=== PATIENT | female | born 1940 | race Hispanic/Latino ===

== ENCOUNTER 2021-09-11 11:29 | Emergency (ER) | payer MEDICARE ==
[~2021-09-11] VITALS: Ht 139.7 cm; Wt 59.4 kg
[2021-09-11 12:39] LABS: BASOPHILS % 0.2 % (0.0-1.0); EOSINOPHILS # (AUTO) 0.1 (0.0-0.4); EOSINOPHILS % 1.1 % (0.0-6.0); HEMATOCRIT 38.5 % (34.2-44.1); HEMOGLOBIN 12.1 g/dL (12.0-16.0); LYMPHOCYTES # (AUTO) 0.8 (1.0-3.2); LYMPHOCYTES % 9.4 % (18.0-39.1); MEAN CORPUSCULAR HEMOGLOBIN 29.7 pg (28-32); MEAN CORPUSCULAR HGB CONC 31.4 g/dL (31-35); MEAN CORPUSCULAR VOLUME 94.4 fL (81-99); MONOCYTES # (AUTO) 0.5 (0.2-0.8); MONOCYTES % 5.3 % (4.4-11.3); NEUTROPHILS # (AUTO) 7.4 (2.1-6.9); NEUTROPHILS % 83.5 % (38.7-80.0); PLATELET COUNT 242 x10e3/uL (140-360); RED BLOOD COUNT 4.08 x10e6/uL (3.6-5.1); RED CELL DISTRIBUTION WIDTH 15.8 % (11.7-14.4)
[2021-09-11 12:42] LABS: CLARITY,URINE CLOUDY (CLEAR); COLOR,URINE YELLOW (YELLOW)
[2021-09-11 12:43] LABS: KETONES,URINE NEGATIVE (NEGATIVE); LEUKOCYTE ESTERASE ,URINE NEGATIVE (NEGATIVE); NITRITE,URINE NEGATIVE (NEGATIVE); PROTEIN,URINE DIPSTICK 1+ (NEGATIVE); URINE UROBILINOGEN 0.2 mg/dL (0.2 - 1)
[2021-09-11 12:59] LABS: ALBUMIN 3.7 g/dL (3.5-5.0); ANION GAP 12.7 mmol/L (8-16); CALCIUM 8.5 mg/dL (8.4-10.2); CREATININE, SERUM 0.84 mg/dL (0.57-1.11); POTASSIUM 3.7 mmol/L (3.5-5.1)
[2021-09-11 13:00] LABS: LIPASE 20 U/L (8-78)
[2021-09-11 13:06] LABS: BACTERIA,URINE FEW /HPF; EPITHELIAL CELLS,URINE FEW /LPF; RBC,URINE >50 /HPF (0-5); WBC,URINE (MAN) 0-5 /HPF (0-5)
[2021-09-11] MEDS ORDERED: KETOROLAC TROMETHAMINE 30 MG/ML VIAL IV STA (14:09)
[2021-09-11] MEDS ORDERED: CEFUROXIME250 MG PO (15:12)
[2021-09-11] MEDS ORDERED: ULTRAM 50MG50 MG PO ×3 (15:12→15:27)
[2021-09-11] MEDS ORDERED: FLOMAX0.4 MG PO (15:12)
[2021-09-11 15:41] VITALS: BP 132/70
== END 2021-09-11 15:45 | disposition home or self-care (01) ==
LOC: ER 11:35
DX: R10.12 Left upper quadrant pain (principal); R31.9 Hematuria, unspecified; N20.2 Calculus of kidney with calculus of ureter
CPT/HCPCS: 36415; 74176; 80053; 81001; 83690; 84484; 85025; 93005; 99284; J1885

== ENCOUNTER 2022-03-17 13:51 | Inpatient (IN) | payer MEDICARE, OTHER ==
[~2022-03-17] VITALS: Ht 139.7 cm; Wt 55.3 kg
[~2022-03-17 13:51] MED LIST: CEFUROXIME250 MG PO; FLOMAX0.4 MG PO; ULTRAM 50MG50 MG PO
[2022-03-17] MEDS ORDERED: KETOROLAC TROMETHAMINE 60 MG/2 ML VIAL IM ONE (15:30)
[2022-03-17] MEDS ORDERED: ONDANSETRON HCL 4 MG ORAL DISINTEGRATING TAB PO ONE (15:30)
[2022-03-17 15:37] LABS: CLARITY,URINE CLEAR (CLEAR); COLOR,URINE YELLOW (YELLOW); KETONES,URINE 2+ (NEGATIVE); LEUKOCYTE ESTERASE ,URINE NEGATIVE (NEGATIVE); NITRITE,URINE NEGATIVE (NEGATIVE); PROTEIN,URINE DIPSTICK TRACE (NEGATIVE); URINE UROBILINOGEN 0.2 mg/dL (0.2 - 1)
[2022-03-17 15:51] LABS: BACTERIA,URINE FEW /HPF; CALCIUM OXALATE CRYSTALS,UR FEW (FEW); RBC,URINE 21-50 /HPF (0-5)
[2022-03-17] MEDS ORDERED: KETOROLAC TROMETHAMINE 30 MG/ML VIAL IV STA (18:15)
[2022-03-17 18:35] LABS: BASOPHILS % 0.1 % (0.0-1.0); HEMATOCRIT 41.9 % (34.2-44.1); HEMOGLOBIN 12.9 g/dL (12.0-16.0); LYMPHOCYTES # (AUTO) 0.7 (1.0-3.2); LYMPHOCYTES % 7.1 % (18.0-39.1); MEAN CORPUSCULAR HEMOGLOBIN 28.6 pg (28-32); MEAN CORPUSCULAR HGB CONC 30.8 g/dL (31-35); MEAN CORPUSCULAR VOLUME 92.9 fL (81-99); MONOCYTES # (AUTO) 0.2 (0.2-0.8); MONOCYTES % 1.8 % (4.4-11.3); NEUTROPHILS # (AUTO) 9.2 (2.1-6.9); NEUTROPHILS % 90.8 % (38.7-80.0); PLATELET COUNT 325 x10e3/uL (140-360); RED BLOOD COUNT 4.51 x10e6/uL (3.6-5.1); RED CELL DISTRIBUTION WIDTH 14.7 % (11.7-14.4)
[2022-03-17 18:50] LABS: ALBUMIN 4.3 g/dL (3.5-5.0); ALBUMIN/GLOBULIN RATIO 1.3 (0.8-2.0); ANION GAP 14.1 mmol/L (8-16); CALCIUM 9.2 mg/dL (8.4-10.2); CREATININE, SERUM 0.78 mg/dL (0.57-1.11); POTASSIUM 4.1 mmol/L (3.5-5.1)
[2022-03-17] MEDS ORDERED: Morphine 4mg INJECTION 4 MG/ML INJ IV ONE (19:00)
[2022-03-17 20:25] VITALS: BP 127/64
[2022-03-17 20:30] VITALS: BP 127/64
[2022-03-17 21:10] VITALS: BP 127/64
[2022-03-17] MEDS ORDERED: KLONOPIN0.5 MG PO (21:10)
[2022-03-17] MEDS ORDERED: FLOMAX0.4 MG PO (21:10)
[2022-03-17] MEDS ORDERED: DIOVAN160 MG PO (21:10)
[2022-03-17] MEDS ORDERED: FEROSUL325 MG (21:10)
[2022-03-17] MEDS ORDERED: ZOLPIDEM TARTRAT5 MG PO (21:10)
[2022-03-17] MEDS ORDERED: TRAMADOL HCL 50 MG TAB PO PRN (23:00)
[2022-03-17] MEDS ORDERED: ZOLPIDEM TARTRATE 5 MG TAB PO SCH (23:00)
[2022-03-17] MEDS ORDERED: HYDRALAZINE HCL 20 MG/ML VIAL IV PRN (23:00)
[2022-03-17] MEDS ORDERED: SODIUM CHLORIDE 0.9% 100 ML ONE (23:34)
[2022-03-18] VITALS (7 sets, daily range): BP systolic 109–148; BP diastolic 56–69
[2022-03-18] MEDS: VALSARTAN 160 MG TAB PO SCH (08:44)
[2022-03-18] MEDS: TAMSULOSIN HCL 0.4 MG CAP PO SCH (16:20)
[2022-03-19] VITALS (7 sets, daily range): BP systolic 118–160; BP diastolic 52–79
[2022-03-19] MEDS ORDERED: IOPAMIDOL 610MG/1ML 300 MG/ML VIAL IV ONE (07:27)
[2022-03-19] MEDS ORDERED: PHENAZOPYRIDINE HCL 100 MG TAB PO PRN (08:15)
[2022-03-19] MEDS ORDERED: CLONAZEPAM 0.5 MG TAB PO PRN (09:00)
[2022-03-19] MEDS: VALSARTAN 160 MG TAB PO SCH (12:00)
[2022-03-19] MEDS ORDERED: LIDOCAINE HCL 2% LOCAL INJ 5 ML SDV VIAL INJ ONE (12:09)
[2022-03-19] MEDS ORDERED: POVIDONE IODINE 0.05% 0.05 % ML PO ONE (12:09)
[2022-03-19] MEDS ORDERED: PROPOFOL IV EMULSION 10 MG/ML 20 ML VIAL ONE (12:09)
[2022-03-19] MEDS ORDERED: ONDANSETRON HCL INJ 2MG/ML 2ML 2 MG/ML VIAL ONE (12:09)
[2022-03-19] MEDS ORDERED: SEVOFLURANE INHAL SOLN 250 ML PEN BTL ONE (12:09)
[2022-03-19] MEDS ORDERED: EPHEDRINE SULFATE INJ 50 MG/ML VIAL ONE (12:09)
[2022-03-19] MEDS ORDERED: FENTANYL CITRATE/PF 100MCG/2 ML INJ ONE (13:12)
[2022-03-19] MEDS: TAMSULOSIN HCL 0.4 MG CAP PO SCH (17:45)
[2022-03-19] MEDS: ACETAMINOPHEN/CODEINE 300MG - 30MG TAB PO PRN (23:52)
[2022-03-20] VITALS: BP 138/64
[2022-03-20 04:00] VITALS: BP 129/65
[2022-03-20 04:59] LABS: BASOPHILS % 0.3 % (0.0-1.0); EOSINOPHILS # (AUTO) 0.2 (0.0-0.4); EOSINOPHILS % 2.6 % (0.0-6.0); HEMOGLOBIN 10.7 g/dL (12.0-16.0); LYMPHOCYTES # (AUTO) 1.5 (1.0-3.2); LYMPHOCYTES % 22.9 % (18.0-39.1); MEAN CORPUSCULAR HEMOGLOBIN 28.5 pg (28-32); MEAN CORPUSCULAR HGB CONC 30.6 g/dL (31-35); MEAN CORPUSCULAR VOLUME 93.3 fL (81-99); MONOCYTES # (AUTO) 0.5 (0.2-0.8); MONOCYTES % 7.9 % (4.4-11.3); NEUTROPHILS # (AUTO) 4.3 (2.1-6.9); PLATELET COUNT 251 x10e3/uL (140-360); RED BLOOD COUNT 3.75 x10e6/uL (3.6-5.1); RED CELL DISTRIBUTION WIDTH 14.9 % (11.7-14.4)
[2022-03-20 05:08] LABS: ANION GAP 12.3 mmol/L (8-16); CALCIUM 8.4 mg/dL (8.4-10.2); CREATININE, SERUM 0.68 mg/dL (0.57-1.11); POTASSIUM 3.3 mmol/L (3.5-5.1)
[2022-03-20] MEDS: ACETAMINOPHEN/CODEINE 300MG - 30MG TAB PO PRN (05:34)
[2022-03-20 05:52] VITALS: BP 129/65
[2022-03-20 08:02] VITALS: BP 113/75
[2022-03-20 08:52] VITALS: BP 113/75
[2022-03-20] MEDS: VALSARTAN 160 MG TAB PO SCH (09:46)
[2022-03-20 14:02] VITALS: BP 154/71
[2022-03-20] MEDS ORDERED: Tylenol #3 PO (14:41)
[2022-03-20] MEDS ORDERED: CEFUROXIME250 MG PO (14:42)
[2022-03-20] MEDS ORDERED: POTASSIUM CHLORIDE 20 MEQ TAB CR PO ONE (14:50)
== END 2022-03-20 15:29 | disposition home or self-care (01) | DRG 661 ==
LOC: ER 13:58 → INTOOBSV 17:56 → ERHOLD 17:56 → MED/SURG 20:42 → OBSVTOIN 03-19 08:51
PROVIDERS: ADMIT Internal Medicine; ATTEND Internal Medicine
PROC: BT141ZZ Fluoroscopy of Kidneys, Ureters and Bladder using Low Osmolar Contrast (ICD-10-PCS; 2022-03-19)
PROC: 0TF4XZZ Fragmentation in Left Kidney Pelvis, External Approach (ICD-10-PCS; principal; 2022-03-19 08:04)
PROC: 0T778DZ Dilation of Left Ureter with Intraluminal Device, Via Natural or Artificial Opening Endoscopic (ICD-10-PCS; 2022-03-19 08:04)
DX: N13.6 Pyonephrosis (principal); I10 Essential (primary) hypertension; N32.81 Overactive bladder; Z87.442 Personal history of urinary calculi; N39.41 Urge incontinence; N95.2 Postmenopausal atrophic vaginitis; N81.4 Uterovaginal prolapse, unspecified; N28.89 Other specified disorders of kidney and ureter; Z20.822 Contact with and (suspected) exposure to COVID-19
CPT/HCPCS: 36415; 50590; 74018; 74176; 80048; 80053; 81001; 85025; 87086; 99284; C1758; C1769; C2617; G0378; J1885; J2001; J2270; J2405; J2543; J3010; J7050; Q0162

== ENCOUNTER 2022-05-10 05:06 | Inpatient (IN) | payer MEDICARE, OTHER ==
[~2022-05-10] VITALS: Ht 165.1 cm; Wt 52.2 kg
[~2022-05-10 05:06] MED LIST changes: +DIOVAN160 MG PO; +FEROSUL325 MG; +KLONOPIN0.5 MG PO; +Tylenol #3 PO; +ZOLPIDEM TARTRAT5 MG PO
[2022-05-10] MEDS ORDERED: ONDANSETRON HCL INJ 2MG/ML 2ML 2 MG/ML VIAL IV STA (05:08)
[2022-05-10] MEDS ORDERED: SODIUM CHLORIDE 0.9% 1000ML 1,000 ML IV ONE (05:15)
[2022-05-10 06:03] LABS: BASOPHILS % 0.1 % (0.0-1.0); HEMATOCRIT 40.8 % (34.2-44.1); HEMOGLOBIN 12.9 g/dL (12.0-16.0); LYMPHOCYTES # (AUTO) 0.5 (1.0-3.2); LYMPHOCYTES % 3.4 % (18.0-39.1); MEAN CORPUSCULAR HEMOGLOBIN 28.2 pg (28-32); MEAN CORPUSCULAR HGB CONC 31.6 g/dL (31-35); MEAN CORPUSCULAR VOLUME 89.1 fL (81-99); MONOCYTES # (AUTO) 0.8 (0.2-0.8); MONOCYTES % 5.3 % (4.4-11.3); NEUTROPHILS # (AUTO) 13.8 (2.1-6.9); NEUTROPHILS % 90.7 % (38.7-80.0); PLATELET COUNT 293 x10e3/uL (140-360); RED BLOOD COUNT 4.58 x10e6/uL (3.6-5.1); RED CELL DISTRIBUTION WIDTH 13.3 % (11.7-14.4)
[2022-05-10 06:22] LABS: CLARITY,URINE CLEAR (CLEAR); COLOR,URINE YELLOW (YELLOW); KETONES,URINE 2+ (NEGATIVE); LEUKOCYTE ESTERASE ,URINE NEGATIVE (NEGATIVE); NITRITE,URINE NEGATIVE (NEGATIVE); PROTEIN,URINE DIPSTICK 2+ (NEGATIVE); URINE UROBILINOGEN 0.2 mg/dL (0.2 - 1)
[2022-05-10] MEDS ORDERED: KETOROLAC TROMETHAMINE 30 MG/ML VIAL IV STA (06:24)
[2022-05-10 06:25] LABS: ALBUMIN 3.4 g/dL (3.5-5.0); ALBUMIN/GLOBULIN RATIO 0.8 (0.8-2.0); ANION GAP 18.5 mmol/L (8-16); CALCIUM 9.2 mg/dL (8.4-10.2); CREATININE, SERUM 0.9 mg/dL (0.57-1.11); POTASSIUM 3.5 mmol/L (3.5-5.1)
[2022-05-10] MEDS ORDERED: FENTANYL CITRATE/PF 100MCG/2 ML INJ IV PRN (06:30)
[2022-05-10 06:31] LABS: BACTERIA,URINE RARE /HPF; EPITHELIAL CELLS,URINE FEW /LPF; RBC,URINE >50 /HPF (0-5)
[2022-05-10] MEDS ORDERED: IOPAMIDOL 370 MG/ML 100 ML INFUS..BTL INJ ONE (06:47)
[2022-05-10] MEDS ORDERED: ONDANSETRON HCL INJ 2MG/ML 2ML 2 MG/ML VIAL IV PRN ×2 (07:30→12:00)
[2022-05-10] MEDS ORDERED: Morphine 4mg INJECTION 4 MG/ML INJ IV PRN (07:30)
[2022-05-10] MEDS: SODIUM CHLORIDE 0.9% 1000ML 1,000 ML IV SCH ×3 (08:00→17:35)
[2022-05-10] MEDS ORDERED: CLONAZEPAM 0.5 MG TAB PO PRN (11:45)
[2022-05-10] MEDS ORDERED: HYDROCODONE/APAP 10MG-325MG TAB PO PRN (12:00)
[2022-05-10] MEDS ORDERED: ACETAMINOPHEN 325 MG TAB PO PRN (12:00)
[2022-05-10 12:40] VITALS: BP 111/52
[2022-05-10 12:43] VITALS: BP 111/52
[2022-05-10 16:49] VITALS: BP 120/56
[2022-05-10] MEDS: SENNA-S TABLET PO SCH (17:00)
[2022-05-10] MEDS: TAMSULOSIN HCL 0.4 MG CAP PO SCH (17:32)
[2022-05-10 19:59] VITALS: BP_SYST 141; BP_SYST 160; BP_DIAS 46; BP_DIAS 55
[2022-05-10 20:07] VITALS: BP 141/55
[2022-05-10] MEDS ORDERED: ZOLPIDEM TARTRATE 5 MG TAB PO PRN (21:00)
[2022-05-10 23:30] VITALS: BP 118/52
[2022-05-11] VITALS (22 sets, daily range): BP systolic 100–126; BP diastolic 48–106
[2022-05-11 04:44] LABS: BASOPHILS % 0.2 % (0.0-1.0); EOSINOPHILS % 0.5 % (0.0-6.0); HEMATOCRIT 30.9 % (34.2-44.1); HEMOGLOBIN 9.9 g/dL (12.0-16.0); LYMPHOCYTES # (AUTO) 0.6 (1.0-3.2); LYMPHOCYTES % 9.3 % (18.0-39.1); MEAN CORPUSCULAR HEMOGLOBIN 27.8 pg (28-32); MEAN CORPUSCULAR VOLUME 86.8 fL (81-99); MONOCYTES # (AUTO) 0.6 (0.2-0.8); MONOCYTES % 10.1 % (4.4-11.3); NEUTROPHILS # (AUTO) 4.7 (2.1-6.9); NEUTROPHILS % 79.6 % (38.7-80.0); PLATELET COUNT 199 x10e3/uL (140-360); RED BLOOD COUNT 3.56 x10e6/uL (3.6-5.1); RED CELL DISTRIBUTION WIDTH 14.4 % (11.7-14.4)
[2022-05-11 05:04] LABS: ANION GAP 12.2 mmol/L (8-16); CALCIUM 7.9 mg/dL (8.4-10.2); CREATININE, SERUM 0.73 mg/dL (0.57-1.11); POTASSIUM 3.2 mmol/L (3.5-5.1)
[2022-05-11] MEDS: SODIUM CHLORIDE 0.9% 1000ML 1,000 ML IV SCH ×2 (07:19→20:58)
[2022-05-11] MEDS ORDERED: DILTIAZEM HCL 5 MG/ML 5 ML VIAL IV STA (08:23)
[2022-05-11] MEDS ORDERED: MAGNESIUM SULFATE 2GM/50ML IV PRN (09:00)
[2022-05-11] MEDS ORDERED: ENOXAPARIN SOD INJ 40 MG/0.4 ML SYR SC SCH (09:15)
[2022-05-11 09:23] LABS: MAGNESIUM 1.6 MG/DL (1.3-2.1); PHOSPHORUS 2.8 MG/DL (2.3-4.7)
[2022-05-11] MEDS: SENNA-S TABLET PO SCH ×2 (10:00→17:26)
[2022-05-11] MEDS ORDERED: POTASSIUM CHLORIDE 10MEQ EA PO ONE ×2 (10:00→11:00)
[2022-05-11] MEDS ORDERED: METOPROLOL TARTRATE 25 MG TAB PO SCH (10:00)
[2022-05-11] MEDS ORDERED: AMIODARONE HCL 150 MG/100 ML BAG IV ONE (10:30)
[2022-05-11] MEDS ORDERED: AMIODARONE 900MG 900 MG in Premix Bag 1 BAG IV SCH (10:45)
[2022-05-11] MEDS ORDERED: DILTIAZEM HCL 125 ML IV SCH (10:45)
[2022-05-11] MEDS: ENOXAPARIN SOD INJ 60 MG/0.6 ML SYR SC SCH ×2 (11:05→23:06)
[2022-05-11] MEDS: METOPROLOL TARTRATE 25 MG TAB PO SCH ×3 (11:40→23:05)
[2022-05-11] MEDS: TAMSULOSIN HCL 0.4 MG CAP PO SCH (17:26)
[2022-05-11] MEDS ORDERED: DILTIAZEM HCL 125 ML IV PRN (19:00)
[2022-05-12] VITALS (7 sets, daily range): BP systolic 115–140; BP diastolic 51–66
[2022-05-12 04:50] LABS: BASOPHILS % 0.2 % (0.0-1.0); EOSINOPHILS # (AUTO) 0.2 (0.0-0.4); EOSINOPHILS % 3.7 % (0.0-6.0); HEMATOCRIT 34.2 % (34.2-44.1); HEMOGLOBIN 10.1 g/dL (12.0-16.0); LYMPHOCYTES # (AUTO) 1.4 (1.0-3.2); LYMPHOCYTES % 30.8 % (18.0-39.1); MEAN CORPUSCULAR HEMOGLOBIN 27.5 pg (28-32); MEAN CORPUSCULAR HGB CONC 29.5 g/dL (31-35); MONOCYTES # (AUTO) 0.7 (0.2-0.8); MONOCYTES % 15.5 % (4.4-11.3); NEUTROPHILS # (AUTO) 2.3 (2.1-6.9); NEUTROPHILS % 49.6 % (38.7-80.0); PLATELET COUNT 209 x10e3/uL (140-360); RED BLOOD COUNT 3.67 x10e6/uL (3.6-5.1); RED CELL DISTRIBUTION WIDTH 14.2 % (11.7-14.4)
[2022-05-12 04:52] LABS: MEAN CORPUSCULAR VOLUME 93.2 fL (81-99)
[2022-05-12 05:06] LABS: ANION GAP 11.5 mmol/L (8-16); CALCIUM 7.8 mg/dL (8.4-10.2); CREATININE, SERUM 0.58 mg/dL (0.57-1.11); POTASSIUM 3.5 mmol/L (3.5-5.1)
[2022-05-12] MEDS: METOPROLOL TARTRATE 25 MG TAB PO SCH ×3 (06:00→16:58)
[2022-05-12] MEDS: SENNA-S TABLET PO SCH ×2 (08:08→16:58)
[2022-05-12] MEDS: METHIMAZOLE 5 MG TAB PO SCH (08:08)
[2022-05-12] MEDS: ENOXAPARIN SOD INJ 60 MG/0.6 ML SYR SC SCH ×2 (10:55→22:01)
[2022-05-12] MEDS: TAMSULOSIN HCL 0.4 MG CAP PO SCH (16:57)
[2022-05-13] VITALS: BP 126/54
[2022-05-13] MEDS: METOPROLOL TARTRATE 25 MG TAB PO SCH ×2 (00:56→06:32)
[2022-05-13 06:01] VITALS: BP 126/62
[2022-05-13 08:35] VITALS: BP 143/60
[2022-05-13] MEDS: SENNA-S TABLET PO SCH (09:00)
[2022-05-13] MEDS: METHIMAZOLE 5 MG TAB PO SCH (09:39)
[2022-05-13] MEDS: ENOXAPARIN SOD INJ 60 MG/0.6 ML SYR SC SCH (09:40)
[2022-05-13] MEDS ORDERED: ONDANSETRON HCL 4 MG ORAL DISINTEGRATING TAB PO PRN (11:15)
== END 2022-05-13 11:49 | disposition home or self-care (01) | DRG 690 ==
LOC: ER 05:15 → ERHOLD 07:32 → MED/SURG 12:00 → ICU 05-11 12:17 → MED/SURG3 05-12 18:00
PROVIDERS: ADMIT Internal Medicine; ATTEND Internal Medicine
DX: N13.6 Pyonephrosis (principal); E87.8 Other disorders of electrolyte and fluid balance, not elsewhere classified; R31.29 Other microscopic hematuria; I48.0 Paroxysmal atrial fibrillation; N28.89 Other specified disorders of kidney and ureter; I10 Essential (primary) hypertension; Z20.822 Contact with and (suspected) exposure to COVID-19; E03.9 Hypothyroidism, unspecified
CPT/HCPCS: 36415; 74177; 80048; 80053; 81001; 83605; 83690; 83735; 84100; 84443; 85025; 87040; 93005; 93306; 94799; 99283; J0696; J1650; J1885; J2405; J3475; J7030; Q9967